=== PATIENT | male | born 1970 | race Caucasian/White ===

== ENCOUNTER 2021-12-27 18:15 | Emergency (ER) | payer OTHER, SELFPAY ==
[2021-12-27 18:21] VITALS: BP 155/84; PULSE 113; RESP 16; TEMP 38.7; O2SAT 99
--- NOTE | 2021-12-27 18:33 | ED.URI ---
HPI - URI/Sore Throat General Chief Complaint: Upper Respiratory Infection Stated Complaint: Sore Throat/Fever Time Seen by Provider: 12/27/21 18:20 Source: patient and RN notes reviewed History of Present Illness HPI Narrative: Patient is a 51-year-old male who presents the urgent care with complaints of a sore throat that started yesterday with body aches, chills and fever today. Patient has not been taking anything [id number] for his symptoms. Denies of any ill contacts. Denies any shortness of breath or cough. No other acute complaints. No acute distress noted. Patient aware of the plan of care. Some parts of this dictation were generated by voice recognition software and may contain typographical and/or grammatical inaccuracies. Related Data Allergies Allergy/AdvReac Type Severity Reaction Status Date / Time lisinopril Allergy Swelling Verified 12/27/21 18:32 Review of Systems Review of Systems: CONSTITUTIONAL: Reports a fever and chills EYES: Denies visual changes, redness, or discharge. ENT: Denies rhinorrhea, congestion, otalgia. Reports of sore throat CARDIOVASCULAR: Denies chest pain, palpitations, or edema. RESPIRATORY: Denies cough or dyspnea. GASTROINTESTINAL: Denies abdominal pain, nausea, vomiting, or diarrhea. GENITOURINARY: Denies dysuria or hematuria. SKIN: Denies rash or itching. MUSCULOSKELETAL: Denies back pain, joint pain. Reports body aches NEUROLOGIC: Denies headache, numbness, or weakness. PSYCHIATRIC: History of anxiety All other systems reviewed are negative, except as documented in HPI. PMFSH Comments At the time of my signature, I reviewed and agree with the nursing past medical, surgical, social, and family history. There is no relevant family history pertinent to the patient complaint. Exam Narrative: GENERAL: This is a well-nourished, well-developed patient, appears anxious HEAD: normocephalic, atraumatic. EYES: PERRL. Sclera clear/white. Vision is grossly intact. EARS: External ears normal, auditory canals clear and without drainage, TMs normal without perforation. Hearing grossly intact. NOSE: External nose normal with no obvious nasal discharge, nares without redness, no rhinorrhea. THROAT: Mucous membranes moist, moderate erythema noted posterior pharynx with moderate bilateral tonsillar edema/erythema without exudate or ulceration. Moderate postnasal drainage NECK: Neck supple, non-tender without lymphadenopathy CARDIOVASCULAR: Regular rate and rhythm without murmurs, gallops, or rubs. RESPIRATORY: Clear to auscultation. Breath sounds equal bilaterally. No wheezes, rales, or rhonchi. SKIN: warm, intact with no suspicious lesions or rash, good texture and turgor. NEURO: awake, alert, and oriented to person, place and time. There were no obvious focal neurologic abnormalities. EXTREMITIES: No clubbing, cyanosis, or edema. Course Course Level of Care: Express Care Visit Vital Signs Vital signs: Vital Signs Temperature 101.7 F H 12/27/21 18:21 Pulse Rate 113 H 12/27/21 18:21 Respiratory Rate 16 12/27/21 18:21 Blood Pressure 155/84 H 12/27/21 18:21 Pulse Oximetry 99 12/27/21 18:21 Temperature 101.7 F H 12/27/21 18:21 Pulse Rate 113 H 12/27/21 18:21 Respiratory Rate 16 12/27/21 18:21 Blood Pressure 155/84 H 12/27/21 18:21 Pulse Oximetry 99 12/27/21 18:21 Reviewed-patient is informed that they may have pre-hypertension or hypertension based on a blood pressure reading in the department. I recommend the patient call the primary care provider listed on their discharge instructions or a physician of their choice this week to arrange follow-up for further evaluation of possible pre-hypertension or hypertension. MDM - URI/Sore Throat MDM Narrative Medical decision making narrative: Reviewed lab results with the patient. He is aware that influenza and strep swabs are both negative. Based on assessment in symptoms?we will treat to cover both bacterial tonsi
== END 2021-12-27 19:15 | disposition home or self-care (01) ==
PROVIDERS: Emergency Provider Nurse Practitioner Family; PCP Internal Medicine
DX: J02.9 Acute pharyngitis, unspecified (principal); I10 Essential (primary) hypertension; K21.9 Gastro-esophageal reflux disease without esophagitis
CPT/HCPCS: 87081; 87804; 87880; 99213; G0463

== ENCOUNTER 2022-08-10 13:17 | Outpatient (CLI) | payer OTHER, SELFPAY ==
--- NOTE | ~2022-08-10 | XR_ITS ---
XR lumbar spine min 4V DATE: 08/10/2022 13:32 INDICATION: Back pain, herniated disc TECHNIQUE: Standing AP and lateral views. Standing flexion and extension lateral views. COMPARISON: None FINDINGS: No fracture or spondylolisthesis or bone destruction. The included lower thoracic and lumba r pedicles are intact. No instability on flexion or extension. There is moderately prominent degenerative disc disease at L2-3, L3-4 and L4-5 and mild degenerative disc disease at L1 to and L5-S1. The sacroiliac joints are intact. Probable left renal calcified calculi. Possible right renal calcified calculi. There is a moderately prominent amount fecal material in the colon. IMPRESSION: Mild to moderate degenerative disc disease throughout the lumbar spine Possible nephrolithiasis Reviewed, dictated and finalized at location A. IMPRESSION: Mild to moderate degenerative disc disease throughout the lumbar sp ine Possible nephrolithiasis
== END 2022-08-10 13:18 | disposition home or self-care (01) ==
LOC: ANHIMG 13:20
PROVIDERS: PCP Internal Medicine; Visit Provider Neurological Surgery
DX: M54.9 Dorsalgia, unspecified (principal); M51.36 Other intervertebral disc degeneration, lumbar region
CPT/HCPCS: 72110

== ENCOUNTER 2022-08-18 07:36 | Outpatient (CLI) | payer OTHER, SELFPAY ==
--- NOTE | 2022-08-18 07:55 | ECG_ITS ---
Measurements Intervals [place] Rate: 74 P: 59 PA: 151 QRS: 22 QRSD: 108 T: 35 QT: 366 QTc: 408 Interpretive Statements SINUS RHYTHM NORMAL ECG NO PREVIOUS ECG AVAILABLE FOR COMPARISON Electronically Signed On 08-18-2022 14:52:52 ART SUPERVISOR by Warner Ozuna D.O.
[2022-08-18 08:03] LABS: Appearance Urine Clear (Clear); Bilirubin Urine Negative (Negative); Blood Urine Negative (Negative); Color Urine Yellow (Yellow); Glucose Urine UA Negative (Negative); Ketones Urine Negative (Negative); Leukocyte Esterase Ur Negative LEU/UL (Negative); Nitrate Urine Negative (Negative); Protein Urine Negative (Negative); pH Urine 7.5 (5.0-9.0)
[2022-08-18 08:07] LABS: Bacteria Urine Trace /hpf; Mucus Urine Rare /lpf; RBC Urine 0-2 /hpf (0-2); WBC Urine 0-3 /hpf
[2022-08-18 08:08] LABS: Anion Gap 10 mmol/L (8-16); Blood Urea Nitrogen 16 mg/dL (9-20); Calcium 9.2 mg/dL (8.4-10.2); Carbon Dioxide 31 mmol/L (22-30); Chloride 98 mmol/L (98-107); Estimated Glomerular Filt Rate > 60; Glucose 94 mg/dL (65-110); Potassium 3.3 mmol/L (3.4-5.0); Sodium 139 mmol/L (137-145)
[2022-08-18 08:09] LABS: Basophils Percent Auto 0.3 % (0.2-1.2); Eosinophils Absolute Auto 0.2 K/mm3 (0-0.3); Hematocrit 43.7 % (42.0-52.0); Hemoglobin 14.6 g/dL (14.0-18.0); Immature Granulocyte Absolute 0.03 K/mm3 (0.00-0.031); Immature Granulocyte Percent A 0.4 % (0-0.5); Lymphocytes Absolute Auto 1.73 K/mm3 (0.9-3.2); Lymphocytes Percent Auto 23.5 % (18.3-44.2); Mean Corpuscular HGB Conc 33.4 g/dl (32-36); Mean Corpuscular Hemoglobin 29.9 pg (26-34); Mean Corpuscular Volume 89.4 fl (80-100); Mean Platelet Volume 10.4 fl (7.4-10.4); Monocytes Absolute Auto 0.6 K/mm3 (0.1-0.6); Monocytes Percent Auto 7.7 % (2.6-8.5); Neutrophils Absolute Auto 4.9 K/mm3 (1.3-6.7); Neutrophils Percent Auto 66.1 % (45.5-73.1); Platelet Count Result 248 k/mm3 (150-375); Red Blood Count 4.89 M/mm3 (4.6-6.20); White Blood Count 7.4 K/mm3 (4.5-10.0)
[2022-08-18 08:17] LABS: Add Urine Microscopic? YES
[2022-08-18 08:30] LABS: Prothrombin Time 12.5 Seconds (11.1-14.7)
[2022-08-18 08:31] LABS: Partial Thromboplastin Time 25.6 SECONDS (22.3-36.8)
== END 2022-08-18 07:37 | disposition home or self-care (01) ==
LOC: ANHLAB 07:38
PROVIDERS: PCP Internal Medicine; Visit Provider Neurological Surgery
DX: Z01.818 Encounter for other preprocedural examination (principal)
CPT/HCPCS: 36415; 80048; 81001; 85025; 85610; 85730; 86850; 86900; 86901; 93005

== ENCOUNTER 2022-09-04 01:32 | Day surgery (SDC) | payer OTHER, SELFPAY ==
[2022-08-23 09:48] VITALS: BMI 34.7
--- NOTE | 2022-08-23 09:53 | PC.NURSE ---
Report to the Outpatient Waiting Room, entrance under the green pavilion located off [facility], at time 0900 on date 09/04/22. Planned Procedure Time: 1100. Time changes happen often and if your time is changed the preop area will call you the afternoon before. - You and your visitor will be asked to self-screen and do not enter if you have any COVID symptoms. - Only one visitor is requested with a max of two and NO children visitors are allowed at this time. - The patient visitor may be requested to leave or wait in car when not with patient due to distancing restrictions. - A mask is optional within the hospital. Patients may have clear liquids (water, carbonated beverages, clear teas, apple juice) until 3 hours prior to surgery with a maximum of 20 ounces. - No food from midnight until time of surgery Take the following medications with a SIP of water the morning of surgery: AMLODIPINE, CYCLOBENZAPRINE, GABAPENTIN, PAROXETINE Medications to discontinue per physician: VITAMINS/SUPPLEMENTS Date to take last dose: 08/31/22 PT STATES WAS INSTRUCTED TO STOP DICLOFENAC 1 WEEK PRIOR TO SURGERY Please no make-up, nail guatemalan, hairspray, perfume, deodorant, or body powder the day of surgery. No jewelry (including any body piercings) or valuables the day of surgery, leave them at home. Please take a shower or bath the night before, or the morning of, surgery with an antibacterial soap. Wear comfortable, loose fitting clothing. - Jewelry must be removed prior to entering the operating room. Rings and piercings that are not removed may be cut off. - The hospital will not accept responsibility for valuables. - Please leave all valuables, including medications, at home the day of surgery. If you are going home after surgery, a licensed stock driver must drive you home. - NO public transportation without another adult if you receive anesthesia. - We recommend that an adult stay with you for 24 hours following discharge. - We also recommend that you do not drive, make important decision, drink alcoholic beverages, or take any drugs that were not prescribed by your health care provider for at least 24 hours after your discharge time. Follow any additional instructions given to you from your surgeon. If you or anyone in your household have experienced Covid symptoms in the past week, please notify your surgeon or the nurse liaison at the phone number below for possible testing. Telephone instructions given to LINDA VELARDE and asked if any additional questions and then verbalized understanding. Patient advised to call surgeon office or pre surgery nurse liaison [phone] if any additional questions.
[2022-09-04] VITALS (8 sets, daily range): BP systolic 148–178; BP diastolic 89–106; PULSE 92–118; RESP 12–18; TEMP 36.4–37.4; O2SAT 96–100
--- NOTE | ~2022-09-04 | XR_ITS ---
EXAMINATION: XR fluoroscopy no charge DATE: 09/04/2022 13:30 ELEVATOR CONDUCTOR INDICATION: LUMBAR DECOMPRESSION . TECHNIQUE: 2 fluoroscopic images of the lateral lumbar spine were obtained during lumbar decompressio n performed by the surgeon. I was not present in the operating room. Fluoroscopy exposure time was 3. 8 seconds. Air Kerma 3.6916 mGy. DAP 0.0732 mGym2. COMPARISON: X-ray lumbar spine 08/10/2022 FINDINGS: Instrument localization of the L4 spinous process, followed by localization of the L3 and L4 posterio r elements. IMPRESSION: Fluoroscopic documentation of lumbar decompression. Please refer to the operative note for complete p rocedural details . Reviewed, dictated and finalized at location K. ATOR CONDUCTOR IMPRESSION: Fluoroscopic documentation of lumbar decompression. Please refer to the operati ve note for complete procedural details .
[2022-09-04] MEDS: LACTATED RINGERS 1,000 ML 30 ML IV CONT ×2 (10:55→15:30)
--- NOTE | 2022-09-04 11:24 | WPDHPUPDATE1 ---
History and Physical Update Update Date/Time: 09/04/22 11:24 History and Physical has been reviewed, including an updated exam of the patient. There are NO changes in the patient's condition. Risks, benefits, and alternatives have been discussed and questions answered. Patient agrees to proceed with procedure. Plan is for lumbar decompression at L3-4 and L4-5
--- NOTE | 2022-09-04 12:35 | WPDANESEPPF ---
Anes - Initial Pre Proc Eval Procedure: Operation Date: 09/04/22 12:30 Proposed Procedures p L 3-4, L4-5 Lumbar Decompression - Kortney Paniagua MD Date/Time: 09/04/22 12:35 Surgeon: Kortney Paniagua MD Pre Op Diagnosis: Lumbar Stenosis Patient Data Age: 51 Gender: M Height: 1.88 m Weight: 125.7 kg Last Vital Signs Temp 37.4 C 09/04/22 10:42 Pulse 104 H 09/04/22 10:42 Resp 18 09/04/22 10:42 BP 162/94 H 09/04/22 10:42 Pulse Ox 96 09/04/22 10:42 O2 Del Method Room Air 09/04/22 10:42 Allergies Allergy/AdvReac Type Severity Reaction Status Date / Time lisinopril Allergy Swelling Verified 08/23/22 09:47 Home Medications Medication Instructions Recorded Confirmed Type allopurinol 300 mg tablet 300 mg PO DAILY 08/10/22 08/23/22 History amlodipine 5 mg tablet 5 mg PO DAILY 08/10/22 08/23/22 History chlorthalidone 25 mg tablet 25 mg PO DAILY 08/10/22 08/23/22 History cyclobenzaprine 10 mg tablet 10 mg PO BID 08/10/22 08/23/22 History diclofenac sodium 75 mg 75 mg PO ONCE 08/10/22 08/23/22 History tablet,delayed release gabapentin 600 mg tablet 600 mg PO TID 08/10/22 08/23/22 History omeprazole 20 mg capsule,delayed 20 mg PO DAILY 08/10/22 08/23/22 History release paroxetine HCl 10 mg tablet 10 mg PO DAILY 08/10/22 08/23/22 History potassium chloride 20 mEq 20 meq PO DAILY 08/10/22 08/23/22 History tablet,extended release Laboratory Tests 09/04/22 10:52 Blood Type A Positive Antibody Screen Negative Patient hx anesthesia problems: none Family hx anesthesia problems: none Results Review: All pre-operative results and documents have been reviewed as part of the pre-operative evaluation. [facility] Past Medical History Medical History Anxiety Arthritis Hypertension Kidney stones Surgical History Surgical History H/O vasectomy Family History Family History Other Brain cancer Heart disease Hypertension Social History Social History Smoking status: Never smoker Alcohol intake: never Substance use: never Substance use type: does not use Living arrangements: with family Spiritual care concerns: No Anes - Eval Final PreProcedure Day of Procedure 09/04/22 12:35 Patient weight: obese Heart: regular rate and rhythm Lungs: clear to auscultation Airway: Mallampati scale class III Neurological: alert and oriented Last oral intake: >/= 8 hours ASA classification: III Emergent: no Anesthetic plan: proceed Anesthesia type and monitoring: general ETT and standard monitoring Results Review: All pre-operative results and documents have been reviewed as part of the pre-operative evaluation. Informed Consent: The patient's anesthetic plan and its attendant risks and benefits were discussed with the patient/family/POA. Questions were solicited and answers provided to the satisfaction of the patient/family/POA.
[2022-09-04] MEDS: ceFAZolin 3 GM/D5W 100 ML 100 ML IVPB (13:31)
[2022-09-04] MEDS: BUPIVACAINE HCL 0.5% PF 30 ML VIAL INFILTRATE (14:18)
--- NOTE | 2022-09-04 15:13 | W.PM.PROC2 ---
Procedure Note - Detailed Date of Procedure 09/04/22 Pre-op Diagnosis Lumbar Stenosis Epidural Lipomatosis Post-op Diagnosis Same Procedure Performed Lumbar laminectomy with medial facetectomy and foraminotomies L3-4 and L4-5 Removal of epidural lipomatosis, L3-4 Surgeon Kortney Paniagua MD Anesthesia General Indications Nataliia Dill is a very pleasant? 51 year old? male who presents at the request of? Dr. Chang with signs and symptoms of? low back and looked proximal left lower extremity pain, sensory change, with both subjective and objective weakness that fits best with an L4 distribution in the setting of lumbar stenosis extending from L3-4 through L4-5.? nataliia has tried treatments that include an epidural steroid injection as well as extensive medical treatments. In the office the most concerning symptom to the patient was both the severity of his pain, now present for 3 months despite nonsurgical measures, as well as mild weakness which was limiting. The patient and I have had an extended discussion in the office today regarding the options for management of these clinical symptoms and radiographic findings. We have discussed the option of physical therapy and the benefit to a formal course of physical therapy.? The patient was unable to participate in physical therapy at the onset of pain.? He has weakness to my examination.? We have discussed that we could consider engagement with physical therapy, but we have also discussed that the longer weakness is present the harder is to recover function even with surgical intervention. We have discussed the option of additional interventional pain management strategies including ELAINE or ablative procedures. In this case we have more specifically discussed? that is the patient saw only partial relief with initial initial ELAINE, particularly given the finding of weakness and the very large disc herniation, the likelihood that repeated attempts would offer a different result a small. Finally, we have generally discussed the option of surgery. In the absence of functional deficits, I have explained that my preference is to exhaust non surgical options prior to consideration of surgery. However, we have discussed that if as he has been unable to obtain durable relief of symptoms with non surgical measures, and especially given the presence of mild proximal weakness. that it would be very reasonable to consider surgical intervention. In this case we have discussed that surgery would entail a Lumbar decompression at L3-4 and L4-5. ? nataliia is inclined to pursue surgery. I have discussed the indications as well as the risks of surgery including but not limited to bleeding, infection, CSF leak, numbness, weakness, paralysis, stroke, coma, even . We have discussed the fundamentals of the surgical procedure as well as the typical recovery from surgery.? he indicates understanding and asks us to proceed with surgery, specifically a? lumbar decompression at L3-4 and L4-5? Description of Procedure The patient was brought into the operating room where general anesthesia was induced.? Appropriate monitoring was obtained.? The patient was turned into a prone position on the [place] table with a Sonny frame.? Extremeties were padded.? The patient was secured to the table.? Localization was performed using intraoperative fluoroscopy and the L3-4 and L4-5 level was identified. The patient's back was prepped and draped sterilely.? A surgical time out was performed.? The planned incision was infused with local anesthetic.? The incision was made using a #10 skin blade.? Hemostasis was achieved. Self retaining retractors were placed and advanced.? The L3 and L4 spinous proceeses were identified and the muscle was dissected off of the spinous process and lamina of L3 and L4 using bovie electrocautery.? Self retaining retractors were advanced. Attention was first turned to the L3-4 level.? A curette was placed under the L3 and L4 lamina and the
[2022-09-04] MEDS: oxyCODONE HCL (*CRX) 5 MG TAB IR PO (17:04)
--- NOTE | 2022-09-04 18:02 | SUR.PHASEII ---
[address] winter and given pt status and no drainage in hemovac only slight in tubing. okayed for discharge home.
== END 2022-09-04 18:10 | disposition home or self-care (01) ==
PROVIDERS: PCP Internal Medicine; Visit Provider Neurological Surgery
PROC: (CPT 22612; principal; 2022-09-04 12:30)
DX: M48.061 Spinal stenosis, lumbar region without neurogenic claudication (principal); D17.79 Benign lipomatous neoplasm of other sites; I10 Essential (primary) hypertension; F41.9 Anxiety disorder, unspecified; E66.9 Obesity, unspecified; Z68.35 Body mass index [BMI] 35.0-35.9, adult
CPT/HCPCS: 63047; 63267; 36415; 80048; 81001; 85025; 85610; 85730; 86850; 86900; 86901; 93005; 99199; A9270; J0131; J0330; J0690; J1100; J2250; J2405; J2704; J2710; J3010; J7120

== ENCOUNTER 2023-01-04 11:28 | Outpatient (CLI) | payer BC, SELFPAY ==
--- NOTE | ~2023-01-04 | XR_ITS ---
XR lumbar spine 2-3V DATE: 01/04/2023 12:00 INDICATION: 08/29/2022 discectomy TECHNIQUE: AP, lateral, coned lateral lumbosacral views COMPARISON: 08/2022 lumbar spine FINDINGS: Status post L3 and L4 laminectomy since 08/2022. Mild to moderate multilevel degenerative disc disease, most prominent at L2-3. No fracture or bone destruction or spondylolisthesis. The included lower thoracic and lumbar pedicles are intact. There is degenerative change at the sacroiliac joints. No erosive change or ankylosis is noted. There are multiple calcifications overlying the left kidney consistent with left nephrolithiasis. Hobson el shadows overlying the right kidney are noted which may obscure right renal calculi. IMPRESSION: Status post L3 and L4 laminectomy since 08/2022 Mild to moderate degenerative disc disease Reviewed, dictated and finalized at location B.
== END 2023-01-04 11:29 | disposition home or self-care (01) ==
PROVIDERS: PCP Internal Medicine; Visit Provider Neurological Surgery
DX: Z98.890 Other specified postprocedural states (principal); M51.36 Other intervertebral disc degeneration, lumbar region
CPT/HCPCS: 72100